=== PATIENT | female | born 1990 | race Caucasian/White ===

== ENCOUNTER 2021-10-14 17:09 | Emergency (ER) | payer MEDICAID ==
[~2021-10-14] VITALS: Ht 162.6 cm; Wt 59.0 kg
[2021-10-14 17:18] VITALS: BP 118/78
--- NOTE | 2021-10-14 17:38 | NUR ---
PT BROUGHT TO ROOM 7
--- NOTE | 2021-10-14 17:42 | NUR ---
30 Y FEMALE FROM HOME WITH C/O OF ABDOMINAL PAIN/R FLANK PAIN X2 WEEKS. PT STATED SHE ALSO HAS HAD N/V/D SINCE YESTERDAY. BOWEL SOUNDS ACTIVE AT THIS TIME. ABDOMEN IS TENDER TO TOUCH AND PT IS CURRENTLY GUARDING. BUMP WITH UNKNOWN CAUSE NOTED ON R FLANK REGION AT THIS TIME. PT DENIES ANY CHEST PAIN, SOB, CHILLS/FEVER AT THIS TIME LMP 10/09/21. PMH: POSTPARUM DEPRESSION ALLERGIES: SEE LIST
[2021-10-14] MEDS ORDERED: NACL 0.9% 1,000 ML IV ONE (17:55)
[2021-10-14] MEDS ORDERED: ONDANSETRON 4 MG/2 ML VIAL IVP ONE (17:55)
[2021-10-14] MEDS ORDERED: KETOROLAC 30 MG/ML VIAL IVP ONE (17:55)
--- NOTE | 2021-10-14 17:56 | NUR ---
20 DELLA IV ESTABLISHED R AC, BLOOD WORK HANDED TO APPLICATION COORDINATOR BEDSIDE.
[2021-10-14 18:10] LABS: APPEARANCE,URINE CLEAR (CLEAR); BILIRUBIN,URINE NEGATIVE (NEGATIVE); BLOOD, URINE NEGATIVE (NEGATIVE); COLOR,URINE YELLOW (YELLOW); LEUKOCYTE ESTERASE ,URINE NEGATIVE (NEGATIVE); NITRITE, URINE NEGATIVE (NEGATIVE); PH,URINE >=9.0 (5.0-9.0); UGLUCOSE NEGATIVE (NEGATIVE)
[2021-10-14 18:16] LABS: BASOPHILS % (AUTO) 0.3 % (0.0-2.0); EOSINOPHILS # (AUTO) 0.1 K/uL (0-0.4); EOSINOPHILS % (AUTO) 2.2 % (0.0-4.0); HEMATOCRIT 37.9 % (36-48); HEMOGLOBIN 12.7 g/dL (12.0-16.0); LYMPHOCYTES # (AUTO) 1.5 K/uL (2.5-16.5); LYMPHOCYTES % (AUTO) 37.8 % (20.5-51.1); MEAN CORPUSCULAR HEMOGLOBIN 30 pg (27-31); MEAN CORPUSCULAR HGB CONC 34 g/dL (33-37); MEAN CORPUSCULAR VOLUME 90.6 fL (80-94); MONOCYTES # (AUTO) 0.4 K/uL (0.8-1.0); MONOCYTES % (AUTO) 9.4 % (1.7-9.3); NEUTROPHILS % (AUTO) 50.3 % (42.2-75.2); PLATELET COUNT (AUTO) 197 K/uL (140-450); RED BLOOD CELL COUNT(AUTO) 4.18 MIL/uL (4.20-5.40); RED CELL DISTRIBUTION WIDTH 13.3 % (11.6-13.7); WHITE BLOOD COUNT (AUTO) 4.1 K/uL (4.8-10.8)
[2021-10-14 18:17] LABS: ANION GAP 12.2 (8-16); CARBON DIOXIDE 29.4 mmol/L (21-32); CREATININE 0.7 mg/dL (0.6-1.3); POTASSIUM 3.6 mmol/L (3.5-5.1)
--- NOTE | 2021-10-14 18:33 | NUR ---
PT PROVIDED WITH WARM BLANKET BEDSIDE
--- NOTE | 2021-10-14 19:18 | NUR ---
Pt report given to ANGÉLICA BARILLAS. Transfer of care at this time.
[2021-10-14 19:30] LABS: ALBUMIN 3.9 g/dL (3.4-5.0); BILIRUBIN,DIRECT 0.2 mg/dL (0.0-0.3); TOTAL BILIRUBIN 1.1 mg/dL (0.0-1.0)
--- NOTE | 2021-10-14 20:28 | NUR ---
PT CONTIUES WITH PAIN TO RIGHT FLANK NO CHANGE IN INTENSITY OR QUALITY. PT INDICATES LAAYING FLAT FEELS BETTER. MOVING INCREASES PAIN FROM 9/10 TO 10/10. PENDING DISPO.
--- NOTE | 2021-10-14 21:05 | NUR ---
Dr. Parekh examining patient.
[2021-10-14] MEDS ORDERED: KETOROLAC 30 MG/ML VIAL IVP SCH (21:10)
[2021-10-14] MEDS ORDERED: MORPHINE SULFATE 4 MG/ML SYR IVP SCH (22:30)
[2021-10-14] MEDS ORDERED: ACET-9525 PO (22:33)
[2021-10-14] MEDS ORDERED: ACET-503 PO (22:35)
--- NOTE | 2021-10-14 23:22 | NUR ---
Patient discharged with v/s stable. Written and verbal after care instructions given and explained. Patient alert, oriented and verbalized understanding of instructions. Ambulatory with steady gait. All questions addressed prior to discharge. ID band removed. Patient advised to follow up with PMD. Rx of T#3 given. S/L DC'd AND ARMBAND REMOVED. Patient educated on indication of medication including possible reaction and side effects. Opportunity to ask questions provided and answered.
[2021-10-14 23:24] VITALS: BP 99/64
== END 2021-10-14 23:22 | disposition home or self-care (01) ==
LOC: MED 17:09
DX: K80.80 Other cholelithiasis without obstruction (principal); Z79.899 Other long term (current) drug therapy; Z88.5 Allergy status to narcotic agent; Z88.6 Allergy status to analgesic agent
CPT/HCPCS: 36415; 76700; 76856; 80048; 80076; 81003; 81025; 83605; 83690; 85025; 93976; 96361; 96374; 96375; 99284; J1885; J2405; J7030; Q0092

== ENCOUNTER 2022-10-02 23:50 | Emergency (ER) | payer MEDICAID, OTHER ==
[~2022-10-02] VITALS: Ht 162.6 cm; Wt 58.5 kg
[~2022-10-02 23:50] MED LIST: ACET-503 PO
[2022-10-02 23:54] VITALS: BP 103/65
--- NOTE | 2022-10-03 00:13 | NUR ---
PT TAKEN TO BED 9
--- NOTE | 2022-10-03 00:52 | NUR ---
Patient lying in bed, A/Ox4, chest rise and fall symmetrical, no s/s of distress.
[2022-10-03] MEDS: KETOROLAC 30 MG/ML VIAL IM ONE ×2 (00:54→01:01)
[2022-10-03 00:56] LABS: APPEARANCE,URINE CLEAR (CLEAR); BILIRUBIN,URINE NEGATIVE (NEGATIVE); BLOOD, URINE TRACE-I (NEGATIVE); COLOR,URINE YELLOW (YELLOW); LEUKOCYTE ESTERASE ,URINE NEGATIVE (NEGATIVE); NITRITE, URINE NEGATIVE (NEGATIVE); PH,URINE 8.5 (5.0-9.0); UGLUCOSE NEGATIVE (NEGATIVE)
[2022-10-03 00:58] LABS: BASOPHILS % (AUTO) 0.6 % (0.0-2.0); EOSINOPHILS # (AUTO) 0.1 K/uL (0-0.4); EOSINOPHILS % (AUTO) 2.7 % (0.0-4.0); HEMATOCRIT 38.2 % (36-48); LYMPHOCYTES # (AUTO) 1.7 K/uL (2.5-16.5); LYMPHOCYTES % (AUTO) 39.9 % (20.5-51.1); MEAN CORPUSCULAR HEMOGLOBIN 31 pg (27-31); MEAN CORPUSCULAR HGB CONC 34 g/dL (33-37); MONOCYTES # (AUTO) 0.3 K/uL (0.8-1.0); MONOCYTES % (AUTO) 8.2 % (1.7-9.3); NEUTROPHILS # (AUTO) 2.1 K/uL (1.8-7.7); NEUTROPHILS % (AUTO) 48.6 % (42.2-75.2); PLATELET COUNT (AUTO) 187 K/uL (140-450); RED CELL DISTRIBUTION WIDTH 13.1 % (11.6-13.7); WHITE BLOOD COUNT (AUTO) 4.2 K/uL (4.8-10.8)
[2022-10-03] MEDS ORDERED: KETOROLAC 30 MG/ML VIAL IVP ONE (01:00)
[2022-10-03] MEDS ORDERED: ONDANSETRON 4 MG/2 ML VIAL IVP ONE (01:00)
[2022-10-03 01:01] LABS: RBC,URINE 0-5 /HPF (0-5); WBC,URINE 0-5 /HPF (0-5)
[2022-10-03] MEDS ORDERED: NACL 0.9% 1,000 ML IV ONE (01:15)
[2022-10-03] MEDS ORDERED: DICYCLOMINE 20 MG/2 ML VIAL IM ONE (01:15)
[2022-10-03 01:19] LABS: ALBUMIN 4.1 g/dL (3.4-5.0); ANION GAP 14.7 (8-16); CARBON DIOXIDE 27.3 mmol/L (21-32); CREATININE 0.6 mg/dL (0.6-1.3); TOTAL BILIRUBIN 0.7 mg/dL (0.0-1.0)
--- NOTE | 2022-10-03 01:26 | NUR ---
PT TAKEN TO CT
--- NOTE | 2022-10-03 01:30 | NUR ---
Patient lying in bed, A/Ox4, chest rise and fall symmetrical, no s/s of distress.
--- NOTE | 2022-10-03 01:37 | NUR ---
PT RETURN FROM CT
--- NOTE | 2022-10-03 02:00 | NUR ---
Patient lying in bed, A/Ox4, chest rise and fall symmetrical, no s/s of distress.
[2022-10-03] MEDS ORDERED: BEN10 PO (02:27)
[2022-10-03 02:59] VITALS: BP 118/74
== END 2022-10-03 03:01 | disposition home or self-care (01) ==
LOC: MED 23:50
DX: R10.9 Unspecified abdominal pain (principal); Z90.49 Acquired absence of other specified parts of digestive tract; Z79.899 Other long term (current) drug therapy; Z88.5 Allergy status to narcotic agent; Z88.8 Allergy status to other drugs, medicaments and biological substances
CPT/HCPCS: 36415; 74176; 80053; 81001; 81025; 83690; 85025; 87086; 96361; 96372; 96374; 96375; 99285; J0500; J1885; J2405; J7030